=== PATIENT | female | born 1985 | race Hispanic/Latino ===

== ENCOUNTER 2021-02-08 19:22 | Emergency (ER) | payer MEDICAID, OTHER ==
[~2021-02-08] VITALS: Ht 162.6 cm; Wt 68.9 kg
[2021-02-08 19:37] VITALS: BP 130/71
[2021-02-08 19:49] LABS: BASOPHILS % (AUTO) 0.3 % (0.0-5.0); EOSINOPHILS % (AUTO) 4.3 % (0.0-8.0); HEMATOCRIT 35.7 % (36-48); MEAN CORPUSCULAR HEMOGLOBIN 28.9 pg (27.0-33.0); MEAN CORPUSCULAR HGB CONC 32.8 g/dL (32.0-36.0); MEAN CORPUSCULAR VOLUME 88.1 fL (79-99); MONOCYTES % (AUTO) 9.4 % (3.0-13.0); PLATELET COUNT (AUTO) 224 K/uL (130-400); RED BLOOD CELL COUNT(AUTO) 4.05 MIL/uL (4.00-5.50); RED CELL DISTRIBUTION WIDTH 13.2 % (11.0-15.5); WHITE BLOOD COUNT (AUTO) 3.5 K/uL (4.8-10.8)
[2021-02-08 20:02] LABS: CREATININE 0.7 mg/dL (0.5-1.5); POTASSIUM 3.6 mmol/L (3.5-5.1)
[2021-02-08 20:12] LABS: ALBUMIN 3.8 g/dL (3.5-5.0); BILIRUBIN,TOTAL 0.2 mg/dL (0.2-1.0); TOTAL PROTEIN, SERUM 9.3 g/dL (6.0-8.3)
[2021-02-08] MEDS ORDERED: KETOROLAC 30MG VIAL (30MG/ML) IV ONE (21:15)
[2021-02-08] MEDS ORDERED: OSELTAMIVIR PHOSPHATE 75 MG CAP PO ONE (22:15)
[2021-02-08] MEDS ORDERED: IBUP-2070 PO (22:22)
[2021-02-08] MEDS ORDERED: OSEL75 PO (22:22)
[2021-02-08] MEDS ORDERED: OSELTAMIVIR PHOSPHATE 75 MG CAP ONE (22:28)
== END 2021-02-08 22:39 | disposition home or self-care (01) ==
LOC: EDH 19:22
DX: J10.1 Influenza due to other identified influenza virus with other respiratory manifestations (principal); R07.81 Pleurodynia; Z20.822 Contact with and (suspected) exposure to COVID-19; Z90.49 Acquired absence of other specified parts of digestive tract
CPT/HCPCS: 36415; 71045; 80053; 81025; 82550; 83874; 84484; 85025; 85378; 86140; 87635; 87804 ×2; 93005; 96374; 99285; C9803; J1885

== ENCOUNTER 2021-02-24 19:56 | Emergency (ER) | payer OTHER ==
[~2021-02-24] VITALS: Ht 162.6 cm; Wt 68.0 kg
[~2021-02-24 19:56] MED LIST: IBUP-2070 PO; OSEL75 PO
[2021-02-24 19:57] VITALS: BP 93/57
[2021-02-24 21:19] LABS: BASOPHILS % (AUTO) 0.2 % (0.0-5.0); EOSINOPHILS % (AUTO) 0.5 % (0.0-8.0); HEMATOCRIT 37.1 % (36-48); LYMPHOCYTES % (AUTO) 31.2 % (21.0-51.0); MEAN CORPUSCULAR HGB CONC 32.9 g/dL (32.0-36.0); MEAN CORPUSCULAR VOLUME 88.1 fL (79-99); MONOCYTES % (AUTO) 7.5 % (3.0-13.0); NEUTROPHILS % (AUTO) 60.3 % (40.0-77.0); PLATELET COUNT (AUTO) 326 K/uL (130-400); RED BLOOD CELL COUNT(AUTO) 4.21 MIL/uL (4.00-5.50); RED CELL DISTRIBUTION WIDTH 12.8 % (11.0-15.5); WHITE BLOOD COUNT (AUTO) 5.9 K/uL (4.8-10.8)
[2021-02-24 21:24] LABS: CREATININE 0.6 mg/dL (0.5-1.5); POTASSIUM 3.3 mmol/L (3.5-5.1)
[2021-02-24 21:25] LABS: PROTHROMBIN TIME 10.9 SEC (9.6-11.6)
[2021-02-24 21:28] LABS: ALBUMIN 4.3 g/dL (3.5-5.0); BILIRUBIN,TOTAL 0.3 mg/dL (0.2-1.0); TOTAL PROTEIN, SERUM 10.3 g/dL (6.0-8.3)
[2021-02-24 21:48] LABS: B-TYPE NATRIURETIC PEPTIDE 21 pg/mL (0-100)
[2021-02-24] MEDS ORDERED: IOHEXOL-350 75 ML VIAL IV ONE (22:07)
[2021-02-24 23:20] VITALS: BP 105/54
[2021-02-24] MEDS ORDERED: KETOROLAC 30MG VIAL (30MG/ML) IV ONE (23:30)
[2021-02-24] MEDS ORDERED: ORPH-43 PO (23:30)
[2021-02-24] MEDS ORDERED: KETOROLAC 30MG VIAL (30MG/ML) ONE (23:32)
== END 2021-02-24 23:36 | disposition home or self-care (01) ==
LOC: EDH 20:27
DX: R07.89 Other chest pain (principal); R09.1 Pleurisy; Z20.822 Contact with and (suspected) exposure to COVID-19; Z79.1 Long term (current) use of non-steroidal anti-inflammatories (NSAID); Z98.51 Tubal ligation status; Z90.49 Acquired absence of other specified parts of digestive tract
CPT/HCPCS: 36415; 71275; 80053; 82550; 83880; 84484; 85025; 85610; 87635; 87804 ×2; 93005; 96374; 99285; C9803; J1885; Q9967

== ENCOUNTER 2024-02-18 18:35 | Emergency (ER) | payer OTHER ==
[~2024-02-18] VITALS: Ht 167.6 cm; Wt 72.6 kg
[~2024-02-18 18:35] MED LIST changes: +ORPH100T4 PO
[2024-02-18 18:39] VITALS: BP 124/65; PULSE 88; RESP 20; O2SAT 97
[2024-02-18 18:59] LABS: RAPID GROUP A STREP negative (NEGATIVE)
[2024-02-18 19:08] LABS: COVID19 (SARS ANTIGEN RAPID) PRESUMPTIVE NEGATIVE (NEGATIVE)
[2024-02-18 19:13] LABS: INFLUENZA TYPE A Negative For Type A (NEGATIVE); INFLUENZA TYPE B Negative For Type B (NEGATIVE)
[2024-02-18] MEDS ORDERED: AMOX1TAB16 PO (19:22)
[2024-02-18] MEDS: AMOX/CLAV 875/125MG TAB PO ONE (19:23)
== END 2024-02-18 19:30 | disposition home or self-care (01) ==
LOC: EDH 18:35 → EEVIPCON 18:35 → EDH 19:30
DX: J01.10 Acute frontal sinusitis, unspecified (principal); B34.9 Viral infection, unspecified; Z20.822 Contact with and (suspected) exposure to COVID-19; Z90.49 Acquired absence of other specified parts of digestive tract; Z79.899 Other long term (current) drug therapy
CPT/HCPCS: 87426; 87804; 87880

== ENCOUNTER 2024-03-19 22:03 | Inpatient (IN) | payer OTHER ==
[~2024-03-19] VITALS: Ht 162.6 cm; Wt 75.7 kg
[~2024-03-19 22:03] MED LIST changes: +AMOX1TAB16 PO
[2024-03-19 22:51] LABS: BASOPHILS # (AUTO) 0.02 K/uL (0.00-0.20); BASOPHILS % (AUTO) 0.2 % (0.0-5.0); EOSINOPHILS # (AUTO) 0.21 K/uL (0.00-0.70); EOSINOPHILS % (AUTO) 2.3 % (0.0-8.0); HEMATOCRIT 37.3 % (36-48); IMMATURE GRANULOCYTE ABSOLUTE 0.06 K/uL (0-1); LYMPHOCYTES # (AUTO) 1.2 K/uL (1.0-4.8); LYMPHOCYTES % (AUTO) 13.2 % (21.0-51.0); MEAN CORPUSCULAR HEMOGLOBIN 30.2 pg (27.0-33.0); MEAN CORPUSCULAR HGB CONC 33.8 g/dL (32.0-36.0); MEAN CORPUSCULAR VOLUME 89.4 fL (79-99); MONOCYTES # (AUTO) 0.6 K/uL (0.1-1.0); MONOCYTES % (AUTO) 6.9 % (3.0-13.0); NEUTROPHILS # (AUTO) 7.1 K/uL (1.8-7.7); NEUTROPHILS % (AUTO) 76.8 % (40.0-77.0); PLATELET COUNT (AUTO) 265 K/uL (130-400); RED BLOOD CELL COUNT(AUTO) 4.17 MIL/uL (4.00-5.50); RED CELL DISTRIBUTION WIDTH 13.2 % (11.0-15.5); WHITE BLOOD COUNT (AUTO) 9.3 K/uL (4.8-10.8)
[2024-03-19 22:57] LABS: CREATININE 0.9 mg/dL (0.5-1.0); POTASSIUM 3.5 mmol/L (3.5-5.1)
[2024-03-19 23:02] LABS: ALBUMIN 3.9 g/dL (3.5-5.0); BILIRUBIN,TOTAL 0.3 mg/dL (0.2-1.0); TOTAL PROTEIN, SERUM 8.9 g/dL (6.0-8.3)
[2024-03-19] MEDS ORDERED: IOHEXOL-350 75 ML VIAL IV ONE (23:05)
[2024-03-19] MEDS: CLINDAMYCIN IVPB 300MG/50ML 50 ML IV SCH (23:57)
[2024-03-20] VITALS (24 sets, daily range): BP systolic 109–129; BP diastolic 56–76; PULSE 79–100; RESP 12–21; O2SAT 98–99
[2024-03-20] MEDS: MORPHINE 4 MG SYG IVP ONE ×2 (00:01→01:31)
[2024-03-20] MEDS: FLUTICASONE PROPIONATE 50MCG/SPRAY 16 GM BOTTLE EN SCH (03:00)
[2024-03-20] MEDS: SOLU-MEDROL 40MG VIAL IVP ONE (03:18)
[2024-03-20] MEDS: CETIRIZINE HCL 5 MG TABLET PO SCH (03:18)
[2024-03-20] MEDS: DiphenhydrAMINE HCL 50 MG/ML VIAL IV ONE (03:18)
[2024-03-20] MEDS: ZOSYN 3.375GM +NS 50ML IVPB ONE (04:34)
[2024-03-20 05:01] LABS: RAPID GROUP A STREP negative (NEGATIVE)
[2024-03-20 05:07] LABS: SARS-CoV-2, RNA, NAAT NEGATIVE SARS CoV-2 (NEGATIVE)
[2024-03-20 05:10] LABS: INFLUENZA TYPE A Negative For Type A (NEGATIVE); INFLUENZA TYPE B Negative For Type B (NEGATIVE)
[2024-03-20] MEDS ORDERED: ONDANSETRON 4MG INJ IV PRN (05:30)
[2024-03-20] MEDS: CLINDAMYCIN IVPB 600MG/50ML 50 ML IV SCH (05:30)
[2024-03-20] MEDS: 0.9%NACL 1000ML 1,000 ML IV SCH ×2 (05:38→08:35)
[2024-03-20 07:24] LABS: BASOPHILS # (AUTO) 0.01 K/uL (0.00-0.20); BASOPHILS % (AUTO) 0.1 % (0.0-5.0); EOSINOPHILS # (AUTO) 0.03 K/uL (0.00-0.70); EOSINOPHILS % (AUTO) 0.4 % (0.0-8.0); HEMATOCRIT 35.3 % (36-48); IMMATURE GRANULOCYTE ABSOLUTE 0.04 K/uL (0-1); LYMPHOCYTES # (AUTO) 0.8 K/uL (1.0-4.8); LYMPHOCYTES % (AUTO) 9.7 % (21.0-51.0); MEAN CORPUSCULAR HEMOGLOBIN 30.5 pg (27.0-33.0); MEAN CORPUSCULAR HGB CONC 32.6 g/dL (32.0-36.0); MEAN CORPUSCULAR VOLUME 93.6 fL (79-99); MONOCYTES # (AUTO) 0.2 K/uL (0.1-1.0); MONOCYTES % (AUTO) 2.3 % (3.0-13.0); NEUTROPHILS # (AUTO) 6.7 K/uL (1.8-7.7); PLATELET COUNT (AUTO) 223 K/uL (130-400); RED BLOOD CELL COUNT(AUTO) 3.77 MIL/uL (4.00-5.50); RED CELL DISTRIBUTION WIDTH 13.2 % (11.0-15.5); WHITE BLOOD COUNT (AUTO) 7.7 K/uL (4.8-10.8)
[2024-03-20 07:40] LABS: ALBUMIN 3.6 g/dL (3.5-5.0); BILIRUBIN,TOTAL 0.3 mg/dL (0.2-1.0); CREATININE 0.9 mg/dL (0.5-1.0); POTASSIUM 4.1 mmol/L (3.5-5.1); TOTAL PROTEIN, SERUM 8.3 g/dL (6.0-8.3)
[2024-03-20 07:44] LABS: INR 0.95 (0.85-1.15); PROTHROMBIN TIME 10.3 SEC (9.6-11.6)
[2024-03-20 07:46] LABS: PARTIAL THROMBOPLASTIN TIME 26.8 SEC (26.3-35.5)
[2024-03-20 08:26] LABS: ERYTHROCYTE SEDIMENTATION RATE 32 MM/HR (0-20)
[2024-03-20] MEDS: FAMOTIDINE 20MG TAB PO SCH (08:34)
[2024-03-20] MEDS: KETOROLAC 15MG/ML VIAL (15MG/ML) IV PRN (13:12)
[2024-03-20] MEDS ORDERED: VANCOMYCIN PROTOCOL PER PHARMACY IV SCH ×2 (14:30)
[2024-03-20] MEDS: VANCOMYCIN 2GM/500 ML BAG 500 ML IV ONE (14:52)
[2024-03-21] VITALS (8 sets, daily range): BP systolic 113–134; BP diastolic 68–82; PULSE 80–92; RESP 18–20; O2SAT 98–99
[2024-03-21] MEDS: VANCOMYCIN 1.25 GM/250 ML BAG 250 ML IV SCH (06:16)
[2024-03-21 07:00] LABS: BASOPHILS # (AUTO) 0.01 K/uL (0.00-0.20); BASOPHILS % (AUTO) 0.2 % (0.0-5.0); EOSINOPHILS % (AUTO) 1.7 % (0.0-8.0); IMMATURE GRANULOCYTE ABSOLUTE 0.04 K/uL (0-1); LYMPHOCYTES # (AUTO) 1.5 K/uL (1.0-4.8); LYMPHOCYTES % (AUTO) 25.7 % (21.0-51.0); MEAN CORPUSCULAR HEMOGLOBIN 29.8 pg (27.0-33.0); MEAN CORPUSCULAR VOLUME 90.4 fL (79-99); MONOCYTES # (AUTO) 0.5 K/uL (0.1-1.0); MONOCYTES % (AUTO) 8.1 % (3.0-13.0); NEUTROPHILS # (AUTO) 3.7 K/uL (1.8-7.7); NEUTROPHILS % (AUTO) 63.6 % (40.0-77.0); PLATELET COUNT (AUTO) 190 K/uL (130-400); RED BLOOD CELL COUNT(AUTO) 3.32 MIL/uL (4.00-5.50); RED CELL DISTRIBUTION WIDTH 13.1 % (11.0-15.5); WHITE BLOOD COUNT (AUTO) 5.8 K/uL (4.8-10.8)
[2024-03-21 07:12] LABS: ALBUMIN 2.6 g/dL (3.5-5.0); BILIRUBIN,TOTAL 0.2 mg/dL (0.2-1.0); CREATININE 0.7 mg/dL (0.5-1.0); POTASSIUM 3.1 mmol/L (3.5-5.1); TOTAL PROTEIN, SERUM 6.6 g/dL (6.0-8.3)
[2024-03-21] MEDS: MORPHINE 2 MG SYG IVP PRN (08:53)
[2024-03-21] MEDS ORDERED: POTASSIUM CHLORIDE 10% ELIXIR 20 MEQ/15 ML UDCUP PO PRN (10:00)
[2024-03-21] MEDS ORDERED: POTASSIUM CHLORIDE 10MEQ/100ML 100 ML IV PRN (10:00)
[2024-03-21 10:55] LABS: HEMOGLOBIN A1C 5.4 % (4.0-6.0)
[2024-03-21] MEDS: KCL 20 MEQ ERTAB PO PRN (14:30)
[2024-03-21] MEDS: COMPOUND IV REFRIGERATED 1 EACH MISC ONE (18:06)
[2024-03-22 04:00] VITALS: BP 111/74; PULSE 80; RESP 20
[2024-03-22 07:04] LABS: BASOPHILS # (AUTO) 0.02 K/uL (0.00-0.20); BASOPHILS % (AUTO) 0.5 % (0.0-5.0); EOSINOPHILS # (AUTO) 0.18 K/uL (0.00-0.70); EOSINOPHILS % (AUTO) 4.3 % (0.0-8.0); HEMATOCRIT 31.7 % (36-48); IMMATURE GRANULOCYTE ABSOLUTE 0.03 K/uL (0-1); LYMPHOCYTES # (AUTO) 1.1 K/uL (1.0-4.8); MEAN CORPUSCULAR HEMOGLOBIN 30.4 pg (27.0-33.0); MEAN CORPUSCULAR HGB CONC 33.1 g/dL (32.0-36.0); MEAN CORPUSCULAR VOLUME 91.9 fL (79-99); MONOCYTES # (AUTO) 0.3 K/uL (0.1-1.0); MONOCYTES % (AUTO) 6.4 % (3.0-13.0); NEUTROPHILS # (AUTO) 2.6 K/uL (1.8-7.7); NEUTROPHILS % (AUTO) 62.1 % (40.0-77.0); PLATELET COUNT (AUTO) 195 K/uL (130-400); RED BLOOD CELL COUNT(AUTO) 3.45 MIL/uL (4.00-5.50); RED CELL DISTRIBUTION WIDTH 13.1 % (11.0-15.5); WHITE BLOOD COUNT (AUTO) 4.2 K/uL (4.8-10.8)
[2024-03-22 07:11] LABS: CREATININE 0.7 mg/dL (0.5-1.0); POTASSIUM 3.7 mmol/L (3.5-5.1)
[2024-03-22 07:30] VITALS: BP 114/77; PULSE 72; RESP 18; O2SAT 99
[2024-03-22] MEDS ORDERED: POTASSIUM CHLORIDE 10MEQ SR TAB PO PRN (11:30)
[2024-03-22 11:50] VITALS: BP 99/65; PULSE 80; RESP 18
[2024-03-22 15:55] VITALS: BP 125/78; PULSE 100; RESP 18
== END 2024-03-22 16:25 | disposition home or self-care (01) | DRG 155 ==
LOC: EDH 22:03 → OBSVTOIN 03-20 05:19 → EDHIP 03-20 05:19 → 2CV 03-20 06:37 → WSH 03-20 17:05
PROVIDERS: ADMIT Hospitalist; ATTEND Hospitalist
PROC: 099KXZZ Drainage of Nasal Mucosa and Soft Tissue, External Approach (ICD-10-PCS; principal; 2024-03-21)
DX: J34.0 Abscess, furuncle and carbuncle of nose (principal); L03.211 Cellulitis of face; L03.221 Cellulitis of neck; J32.0 Chronic maxillary sinusitis; E87.6 Hypokalemia; Z90.49 Acquired absence of other specified parts of digestive tract; Z98.51 Tubal ligation status
CPT/HCPCS: 36415; 70486; 70487; 76536; 80048; 80053; 80202; 83036; 84145; 84703; 85025; 85610; 85651; 85730; 87635; 87804; 87880; J1200; J1885; J2270; J2543; J2919; J3490; J7030; Q9967; 3370; J3370

== ENCOUNTER 2024-04-24 02:30 | Inpatient (IN) | payer OTHER ==
[2024-04-24] VITALS (25 sets, daily range): BP systolic 106–144; BP diastolic 64–89; PULSE 55–83; RESP 12–20; TEMP 97.3–97.7; O2SAT 97
[~2024-04-24] VITALS: Ht 162.6 cm; Wt 70.3 kg
[2024-04-24 02:52] LABS: BASOPHILS # (AUTO) 0.01 K/uL (0.00-0.20); BASOPHILS % (AUTO) 0.2 % (0.0-5.0); EOSINOPHILS # (AUTO) 0.27 K/uL (0.00-0.70); EOSINOPHILS % (AUTO) 6.5 % (0.0-8.0); HEMATOCRIT 37.7 % (36-48); IMMATURE GRANULOCYTE ABSOLUTE 0.01 K/uL (0-1); LYMPHOCYTES # (AUTO) 1.3 K/uL (1.0-4.8); LYMPHOCYTES % (AUTO) 30.1 % (21.0-51.0); MEAN CORPUSCULAR HEMOGLOBIN 30.4 pg (27.0-33.0); MEAN CORPUSCULAR HGB CONC 34.2 g/dL (32.0-36.0); MEAN CORPUSCULAR VOLUME 88.7 fL (79-99); MONOCYTES # (AUTO) 0.4 K/uL (0.1-1.0); MONOCYTES % (AUTO) 10.4 % (3.0-13.0); NEUTROPHILS # (AUTO) 2.2 K/uL (1.8-7.7); NEUTROPHILS % (AUTO) 52.6 % (40.0-77.0); PLATELET COUNT (AUTO) 270 K/uL (130-400); RED BLOOD CELL COUNT(AUTO) 4.25 MIL/uL (4.00-5.50); RED CELL DISTRIBUTION WIDTH 13.3 % (11.0-15.5); WHITE BLOOD COUNT (AUTO) 4.2 K/uL (4.8-10.8)
[2024-04-24] MEDS: ondanSETRON 4MG INJ IVP ONE (02:54)
[2024-04-24] MEDS: LACTATED RINGERS IV ONE (02:54)
[2024-04-24] MEDS ORDERED: morPHINE 4 MG SYG IM ONE (03:00)
[2024-04-24 03:01] LABS: CREATININE 0.8 mg/dL (0.5-1.0); POTASSIUM 3.4 mmol/L (3.5-5.1)
[2024-04-24] MEDS: morPHINE 4 MG SYG IVP ONE (03:04)
[2024-04-24 03:06] LABS: ALBUMIN 3.8 g/dL (3.5-5.0); BILIRUBIN,TOTAL 0.3 mg/dL (0.2-1.0); TOTAL PROTEIN, SERUM 8.6 g/dL (6.0-8.3)
[2024-04-24] MEDS: ketOROlac 15MG/ML VIAL (15MG/ML) IV ONE (03:33)
[2024-04-24] MEDS: hydroMORPHone 0.5 MG SYG (0.5MG/0.5ML) IVP ONE (04:13)
[2024-04-24 04:36] LABS: ADD UA MICROSCOPIC NO; APPEARANCE,URINE CLEAR (CLEAR); BILIRUBIN,URINE NEGATIVE (NEGATIVE); COLOR,URINE LIGHT-YELLOW (YELLOW); GLUCOSE, URINE (UA) NEGATIVE (NEGATIVE); KETONES,URINE NEGATIVE (NEGATIVE); LEUKOCYTE ESTERASE ,URINE NEGATIVE Leu/uL (NEGATIVE); NITRATE,URINE NEGATIVE (NEGATIVE); OCCULT BLOOD,URINE NEGATIVE (NEGATIVE); PH,URINE 6.5 (5.0-8.0); PROTEIN,URINE NEGATIVE (NEGATIVE); UROBILINOGEN,URINE 0.2 mg/dL (0.2-1.0)
[2024-04-24] MEDS ORDERED: MEPERIDINE-PF 50 MG/ML SYG IVP PRN (06:00)
[2024-04-24] MEDS: DEXTROSE 5 %-0.45 % NACL 1,000 ML IV SCH ×2 (06:08→17:15)
[2024-04-24] MEDS: ZOSYN 3.375GM +NS 50ML IV SCH (09:08)
[2024-04-24] MEDS: ondanSETRON 4MG INJ IVP PRN (09:08)
[2024-04-24] MEDS: PROMETHAZINE HCL 25 MG/ML 1ML AMPULE IM PRN (11:46)
[2024-04-24] MEDS: MEPERIDINE-PF 50 MG/ML SYG IM PRN (11:48)
[2024-04-24] MEDS ORDERED: LIDOCAINE PF 100MG/5ML (2%) SYRINGE 5ML ONE (13:25)
[2024-04-24] MEDS ORDERED: MIDAZOLAM HCL 1 MG/ML 2ML VIAL ONE (13:26)
[2024-04-24] MEDS ORDERED: rocuRONium bROMide 10MG/1ML 5ML VL ONE (13:26)
[2024-04-24] MEDS ORDERED: FENTanyl CITRate PF 50 MCG/1 ML 2ML VIAL ONE (13:26)
[2024-04-24] MEDS ORDERED: proPOFol 10 MG/ML 20ML VIAL IV ONE (13:26)
[2024-04-24] MEDS ORDERED: FAMOTIDINE 20MG VIAL IV ONE (13:34)
[2024-04-24] MEDS ORDERED: acetaMINOPHEN 1,000 MG/100 ML VIAL IV ONE (13:34)
[2024-04-24] MEDS ORDERED: ketaMINE 50MG/ML SYRINGE 50 MG/ML DISP.SYRIN ONE (13:36)
[2024-04-24] MEDS ORDERED: dexaMETHasone SOD PHOSPHATE 10MG/ML 1ML VIAL ONE (13:49)
[2024-04-24] MEDS ORDERED: ondanSETRON 4MG INJ ONE (13:49)
[2024-04-24] MEDS ORDERED: GLYCOPYRROLATE 0.2 MG/ML 5 ML VIAL ONE (14:07)
[2024-04-24] MEDS ORDERED: NEOSTIGMINE METHYLSULFATE 1MG/ML IV ONE (14:07)
[2024-04-24] MEDS: LACTATED RINGERS 1000ML 1,000 ML IV ONE (14:40)
[2024-04-25 03:35] VITALS: BP 104/66; PULSE 77; RESP 20; TEMP 97.3
[2024-04-25] MEDS: acetaMINOPHEN WITH coDEINE 1 TAB TAB PO PRN (03:45)
[2024-04-25 07:25] VITALS: BP 112/65; PULSE 77; RESP 18; TEMP 98.1
== END 2024-04-25 09:47 | disposition home or self-care (01) | DRG 743 ==
LOC: EDH 02:30 → EDHIP 05:55 → WSH 06:12
PROVIDERS: ADMIT Obstetrics & Gynecology; ATTEND Obstetrics & Gynecology
PROC: 0UB13ZZ Excision of Left Ovary, Percutaneous Approach (ICD-10-PCS; principal; 2024-04-24 13:43)
DX: N83.292 Other ovarian cyst, left side (principal); N83.512 Torsion of left ovary and ovarian pedicle; Z98.51 Tubal ligation status
CPT/HCPCS: 36415; 74176; 76856; 80053; 81003; 84703; 85025; 88305; 96375; A4351; G0378; J1100; J1170; J1885; J2001; J2175; J2250; J2270; J2405; J2543; J2550; J2704; J2710; J3010; J3490; J7030; J7042; J7120; A4215; A4649; A4930; C1765; C1769; L0625

== ENCOUNTER 2024-11-08 12:42 | Emergency (ER) | payer OTHER ==
[~2024-11-08] VITALS: Ht 162.6 cm; Wt 72.6 kg
[2024-11-08 13:01] VITALS: BP 135/71; PULSE 111; RESP 18; TEMP 98.8; O2SAT 99
[2024-11-08] MEDS: traMADol HCL 50 MG TABLET PO ONE (13:47)
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
[2024-11-08] MEDS: Solu-medROL 125MG VIAL ONE (16:18)
[2024-11-08] MEDS: LIDOCAINE HCL-MPF 2% 5ML VIAL ONE (16:18)
[2024-11-08] MEDS: LACTULOSE 20 GM/30 ML UDCUP PR ONE (16:21)
== END 2024-11-08 16:27 | disposition home or self-care (01) ==
LOC: EDH 12:42
DX: K59.00 Constipation, unspecified (principal); M62.838 Other muscle spasm; Z88.3 Allergy status to other anti-infective agents; Z90.49 Acquired absence of other specified parts of digestive tract; Z98.51 Tubal ligation status; Z98.890 Other specified postprocedural states; V89.2XXA Person injured in unspecified motor-vehicle accident, traffic, initial encounter; Y93.89 Activity, other specified; Y92.89 Other specified places as the place of occurrence of the external cause; Y99.8 Other external cause status
CPT/HCPCS: 99284; 72100; 72070; 96372; J2919; J3490